=== PATIENT | female | born 1990 | race African-American/Black ===

== ENCOUNTER 2019-02-13 04:03 | Emergency (ER) | payer SELFPAY ==
[~2019-02-13] VITALS: Ht 162.6 cm; Wt 59.0 kg
[2019-02-13] MEDS ORDERED: KETOROLAC 60MG/2ML VIAL IM STA (05:36)
[2019-02-13] MEDS ORDERED: LIDOCAINE 1%/EPI 1:100,000 10 ML VIAL IJ ONE (05:45)
[2019-02-13] MEDS ORDERED: BACITRACIN ZINC OINT UDPKT TOP ONE (05:45)
[2019-02-13] MEDS ORDERED: LIDOCAINE HCL/EPINEPHRINE 1%-EPI 1:100,000 20 ML VIAL INFIL NR (06:00)
[2019-02-13] MEDS ORDERED: BACITRACIN 15GM TUBE TOP SCH (06:00)
[2019-02-13 06:38] VITALS: BP 110/75
== END 2019-02-13 06:44 | disposition home or self-care (01) ==
LOC: ER 05:17
DX: L02.31 Cutaneous abscess of buttock (principal); I10 Essential (primary) hypertension; E24.9 Cushing's syndrome, unspecified; Z98.890 Other specified postprocedural states
CPT/HCPCS: 10060; 81025; 96372; 99283; J1885; J3490

== ENCOUNTER 2019-02-14 04:23 | Emergency (ER) | payer SELFPAY ==
[~2019-02-14] VITALS: Ht 162.6 cm; Wt 59.0 kg
[2019-02-14 07:19] VITALS: BP 98/67
== END 2019-02-14 10:39 | disposition home or self-care (01) ==
LOC: ER 04:23
DX: L02.31 Cutaneous abscess of buttock (principal); R23.4 Changes in skin texture; I10 Essential (primary) hypertension; F12.10 Cannabis abuse, uncomplicated; F17.200 Nicotine dependence, unspecified, uncomplicated; Z98.890 Other specified postprocedural states
CPT/HCPCS: 10060; 99283

== ENCOUNTER 2019-02-18 03:31 | Emergency (ER) | payer SELFPAY ==
[~2019-02-18] VITALS: Ht 162.6 cm; Wt 59.0 kg
[2019-02-18 05:18] VITALS: BP 128/72
== END 2019-02-18 05:27 | disposition home or self-care (01) ==
LOC: ER 03:31
DX: L02.31 Cutaneous abscess of buttock (principal); F12.10 Cannabis abuse, uncomplicated
CPT/HCPCS: 99283